=== PATIENT | male | born 1945 | race Hispanic/Latino ===

== ENCOUNTER 2019-08-23 17:25 | Inpatient (IN) | payer MEDICARE ==
[~2019-08-23] VITALS: Ht 170.2 cm; Wt 76.2 kg
[2019-08-23] MEDS ORDERED: MORPHINE SULFATE 2 MG/ML SYR 1ML IV PRN (17:45)
[2019-08-23] MEDS ORDERED: DEXTROSE 50% SYRINGE 50 ML IV PRN (17:45)
[2019-08-23] MEDS ORDERED: MORPHINE SULFATE INJ 4 MG/ML INJ 1ML IV PRN (17:45)
[2019-08-23] MEDS ORDERED: ONDANSETRON HCL INJ 2MG/ML 2ML 2 MG/ML VIAL IV PRN (17:45)
[2019-08-23 17:55] LABS: BASOPHILS # (AUTO) 0.1 (0.0-0.1); BASOPHILS % 0.6 % (0.0-1.0); EOSINOPHILS # (AUTO) 0.1 (0.0-0.4); EOSINOPHILS % 0.9 % (0.0-6.0); HEMATOCRIT 38.3 % (38.2-49.6); HEMOGLOBIN 12.2 g/dL (14.0-18.0); LYMPHOCYTES # (AUTO) 0.8 (1.0-3.2); LYMPHOCYTES % 8.8 % (18.0-39.1); MEAN CORPUSCULAR HEMOGLOBIN 27.7 pg (28-32); MEAN CORPUSCULAR HGB CONC 31.9 g/dL (31-35); MEAN CORPUSCULAR VOLUME 86.8 fL (81-99); MONOCYTES # (AUTO) 0.8 (0.2-0.8); NEUTROPHILS # (AUTO) 7.4 (2.1-6.9); NEUTROPHILS % 79.5 % (38.7-80.0); PLATELET COUNT 209 x10e3/uL (140-360); RED BLOOD COUNT 4.41 x10e6/uL (4.3-5.7); RED CELL DISTRIBUTION WIDTH 15.2 % (11.7-14.4)
[2019-08-23 18:09] LABS: ANION GAP 15.3 mmol/L (8-16); CALCIUM 9.2 mg/dL (8.4-10.2); CREATININE, SERUM 1.21 mg/dL (0.72-1.25); POTASSIUM 4.3 mmol/L (3.5-5.1)
[2019-08-23] MEDS: PIPER-TAZ 3.375 GM 50 ML IV SCH ×2 (18:21→23:11)
--- NOTE | 2019-08-23 18:32 | Diagnostic Imaging Report ---
Exam: Left foot series, 3 views. Clinical History: Gangrene, black toe Comparison: None. Findings: 3 views of the left foot. There is decreased bone mineralization. Negative for acute, displaced fracture or dislocation. Mild degenerative changes in the first toe metatarsophalangeal joint. Multiple air foci project in the soft tissues surrounding the third toe proximal phalanx. Lucencies and cortical irregularity noted in the superior/dorsal aspect of the fifth toe proximal phalanx, only seen in the lateral view. Extensive vascular calcifications. Moderate soft tissue swelling particularly in the dorsal aspect of the foot. Impression: 1. Findings consistent with gangrene involving the soft tissues surrounding the third toe proximal phalanx. 2. Findings in the superior/dorsal aspect of the fifth toe proximal phalanx are only seen in the lateral view, however, are suspicious for osteomyelitis. Signed by: Dr. Toby Bai M.D. on 08/23/2019 6:29 PM
[2019-08-23] MEDS ORDERED: DEXTROSE 50% SYRINGE 50 ML IV ONE (19:15)
[2019-08-23 20:45] VITALS: BP 182/82
--- NOTE | 2019-08-23 20:45 | NUR ---
PATIENT IS A NEW ADMIT THAT ARRIVED VIA STRETCHER. PATIENT IS AWAKE AND TALKING. PATIENT HAS BEEN ASSISTED INTO THE BED, BED IS IN THE LOWEST POSITION AND CALL KAHN IS WITHIN REACH.
[2019-08-23] MEDS: INSULIN REGULAR, HUMAN 100 UNIT/1 ML 3ML VIAL SQ SCH (21:00)
[2019-08-23] MEDS ORDERED: SODIUM CHLORIDE 0.9% 250ML 250 ML ONE (23:00)
[2019-08-23] MEDS ORDERED: HYDROCHLOROTHIA25 MG PO (23:44)
[2019-08-23] MEDS ORDERED: FLOMAX0.4 MG PO (23:44)
[2019-08-23] MEDS ORDERED: CRESTOR10 MG PO ×2 (23:44→23:45)
[2019-08-23] MEDS ORDERED: LEVOTHYROXINE50 MCG PO (23:44)
[2019-08-23] MEDS ORDERED: DILTIAZEM ER300 MG PO (23:44)
[2019-08-23] MEDS ORDERED: GLIMEPIRIDE4 MG PO (23:44)
[2019-08-23] MEDS ORDERED: JANUVIA100 MG PO (23:44)
[2019-08-23] MEDS ORDERED: METFORMIN HCL500 M2 PO (23:44)
[2019-08-23] MEDS ORDERED: LOSARTAN POTAS100 MG PO (23:44)
[2019-08-24] VITALS (8 sets, daily range): BP systolic 143–174; BP diastolic 65–77
--- NOTE | 2019-08-24 05:14 | NUR ---
H&P cc: toe color changes HPI: 74yoM, PCP , developed blackening of toe on left foot; Ongoing for 1 month. PCP sent pt to hospital. No abx at home. PMH: DM2, HTN, HLD, Hypothyroidism, BPH PSHx: none Allergies; see emr FH/SH; ; no cigs Meds; see MAR ROS: no f/c/s/N/V/D/[facility] [place] OCA/CP/sob/dizziness/back pain/confusion/agitation v/s; revd PE tired appearing anicteric ns1s2 mod bs soft nt nd Leg edema 2+ B/L 3rd toe on left foot black and malodorous; 4th toe on left foot edematous skin dry flat affect a&ox3; [facility] labs/meds; revd A/P: 74yoM Gangrene of 3rd phalanx left foot DM2 HTN Hypoglycemia DM2 SIVA BPH HLD PLAN IV abx; podiatry; check MRI; sed rate; hab1c/lipids lovenox/pepcid dispo: Tyler Holloway MD, PhD.
[2019-08-24] MEDS: PIPER-TAZ 3.375 GM 50 ML IV SCH ×4 (05:34→23:52)
[2019-08-24 05:48] LABS: BASOPHILS # (AUTO) 0.1 (0.0-0.1); BASOPHILS % 0.7 % (0.0-1.0); EOSINOPHILS # (AUTO) 0.1 (0.0-0.4); EOSINOPHILS % 1.4 % (0.0-6.0); HEMOGLOBIN 11.5 g/dL (14.0-18.0); LYMPHOCYTES # (AUTO) 0.5 (1.0-3.2); LYMPHOCYTES % 6.5 % (18.0-39.1); MEAN CORPUSCULAR HEMOGLOBIN 27.4 pg (28-32); MEAN CORPUSCULAR HGB CONC 31.1 g/dL (31-35); MEAN CORPUSCULAR VOLUME 88.1 fL (81-99); MONOCYTES # (AUTO) 0.6 (0.2-0.8); MONOCYTES % 7.4 % (4.4-11.3); NEUTROPHILS # (AUTO) 6.8 (2.1-6.9); NEUTROPHILS % 83.5 % (38.7-80.0); PLATELET COUNT 188 x10e3/uL (140-360); RED CELL DISTRIBUTION WIDTH 15.6 % (11.7-14.4)
[2019-08-24 06:05] LABS: ANION GAP 14.9 mmol/L (8-16); BLOOD UREA NITROGEN 19 mg/dL (7-26); BUN/CREATININE RATIO 17 (6-25); CALCIUM 8.6 mg/dL (8.4-10.2); CARBON DIOXIDE 26 mmol/L (22-29); CHLORIDE 103 mmol/L (98-107); CREATININE, SERUM 1.12 mg/dL (0.72-1.25); EST GLOMERULAR FILTRATION RATE > 60 ML/MIN (60-); GLUCOSE 69 mg/dL (74-118); POTASSIUM 3.9 mmol/L (3.5-5.1); SODIUM 140 mmol/L (136-145)
--- NOTE | 2019-08-24 06:08 | NUR ---
MD office notified of aggressive debridement consult. Awaiting call back from .
--- NOTE | 2019-08-24 06:15 | NUR ---
patient's blood sugar has been re-assessed and found to be 76. patient is laying in bed talking. No signs of distress noted.
--- NOTE | 2019-08-24 06:44 | NUR ---
at 6am patients blood sugar was 69. patient was awake laying in bed and talking. No signs of distress noted. patient was given 1 ham sandwich and and 1 cup of apple juice. will re-assess patient's blood sugar in 15minutes.
[2019-08-24 07:08] LABS: CHOL/HDL RATIO 3.8 (3.9-4.7)
--- NOTE | 2019-08-24 07:21 | NUR ---
report given to day nurse. patient is resting comfortably in bed. bed is in lowest position and call fraser is within reach.
[2019-08-24] MEDS: INSULIN REGULAR, HUMAN 100 UNIT/1 ML 3ML VIAL SQ SCH ×4 (07:30→21:10)
[2019-08-24] MEDS: FAMOTIDINE 20 MG TAB PO SCH ×2 (08:33→17:08)
[2019-08-24] MEDS: TAMSULOSIN HCL 0.4 MG CAP PO SCH (08:33)
[2019-08-24] MEDS: DILTIAZEM HCL ER 120 MG CAP PO SCH (08:34)
[2019-08-24] MEDS: DILTIAZEM HCL 180 MG CAP ER PO SCH (08:34)
[2019-08-24] MEDS: LEVOTHYROXINE SODIUM 100 MCG TAB PO SCH (08:43)
--- NOTE | 2019-08-24 10:08 | Diagnostic Imaging Report ---
MRI of the left forefoot without contrast. History: Foot pain. Gangrene left third digit. Diabetes. Decreased range of motion. Technique: Multiplanar multisequence MRI of the foot without contrast Comparison: Radiographs 08/23/2019 Findings: Skin ulceration with skin thickening and abnormal soft tissue edema involving the distal third toe. There is underlying cortical destruction and bone marrow edema involving the distal phalanx of the third toe consistent with osteomyelitis. Scattered degenerative change about the remaining visualized osseous structures. No definite MRI evidence to suggest osteomyelitis in the region of the fifth toe. Mild diffuse muscle atrophy. Superficial soft tissue edema most pronounced dorsally could be due to cellulitis. No ligamentous or tendon tear. The visualized neurovascular bundles are intact. Impression: Skin ulceration with skin thickening and abnormal soft tissue edema involving the distal third toe. There is underlying cortical destruction and bone marrow edema involving the distal phalanx of the third toe consistent with osteomyelitis. Signed by: Dr. Jose Manuel Ro M.D. on 08/24/2019 10:05 AM
--- NOTE | 2019-08-24 11:03 | NUR ---
WOUND CARE CONSULT 74 YO MALE DIABETIC PATIENT WITH HX CELLULITIS AND GANGRENE LEFT 3RD DIGIT MICHAEL 20 ON CONSERVATIVE PUP AND VISCO MATTRESS LABS: WBC-8.1,HGB-11.5,GLUCOSE- 69,GJDJ8D-15.4 X-RAY - SHOWS GANGRENE SOFT TISSUE 3RD TOE PROXIMAL PHALANX ALSO OSTEOMYELITIS DORSAL ASPECT OF 5TH TOE SKIN ASSESSMENT COMPLETE PATIENT PRESENTS WITH NECROTIC DARK BLACKENED 3RD TOE LEFT FOOT WITH EDEMA AND REDNESS RAMY 5TH TOE SWOLLEN NO OPEN AREAS REPORTED TO HAVE OSTEOMYELITIS PRESENT EVIDENCE BY X-RAY MRI RESULTS PENDING DR MAR CONSULTED SCHEDULED TO SEE PATIENT TODAY TO FORMULATE TREATMENT PLAN NURSING TO RECONSULT WOUND CARE IF NEEDED RECOMMENDATIONS : NURSING TO CONTINUE TO MONITOR AND MAINTAIN CONSERVATIVE PUP STATUS AND VISCO SURFACE NURSING TO CONTINUE TO ASSIST PATIENT OUT OF BED FOR MEALS AND MUCH TOLERATED NURSING TO APPLY BETADINE MADDY DAILY TO NECROTIC DIGIT AND COVERED WITH MADDY WRAPPED WITH KERLIX Addendum: 08/24/19 at 1117 by Kervin Jc RN Amended: Links added.
[2019-08-24] MEDS: VANCOMYCIN 1GM/NS 250 ML 250 ML IV SCH (14:54)
[2019-08-24] MEDS: ENOXAPARIN SOD INJ 40 MG/0.4 ML SYR SC SCH (17:08)
--- NOTE | 2019-08-24 18:59 | NUR ---
PATIENT IS IN STABLE CONDITION WITH NO S/S OF RESPIRATORY DISTRESS. NO PAIN VOICED. DRESSING TO LEFT FOOT IS DRY AND INTACT. BED ALARM APPLIED. PRESENT IN ROOM. CALL LIGHT IS WITHIN REACH OF PATIENT- PATIENT INSTRUCTED TO CALL FOR ASSISTANCE NEEDED. REPORT GIVEN TO ONCOMING NURSE.
--- NOTE | 2019-08-24 20:10 | NUR ---
Assessment done.no resp.distress.iv to right for arm is patent.Dr.J Paulino was doing rounds.received new orders. is with patient.bed locked and in lowest position.phone and call light within reach.instructed to call for assistance as needed.
[2019-08-24] MEDS: SIMVASTATIN 40 MG TAB PO SCH (21:10)
--- NOTE | 2019-08-24 21:24 | Consultation ---
DATE OF CONSULTATION: 08/24/2019 REASON FOR CONSULTATION: Gangrene of the foot, 3rd toe. HISTORY OF PRESENT ILLNESS: This patient who is a very pleasant 74-year-old male, who has history of hypertension, diabetes mellitus with neuropathy, atherosclerotic disease, comes in with left foot infection on the 3rd toe for the last week or so, getting progressively worse. The patient is telling me that there was no specific trauma, but this started more than 10 days ago. The toe became necrotic and the foot is red, so he came here. So the patient came to the hospital. The patient who does have history of hypertension, diabetes, no specific trauma. The patient is being admitted. He is complaining of pain. REVIEW OF SYSTEMS: HEENT: Negative. PULMONARY: Negative. CARDIAC: Negative. : Negative. Otherwise unremarkable. LABORATORY DATA: White count 9.3, hemoglobin 12. Sodium 140, potassium 3.9, creatinine 1.12. His laboratory data reviewed. MEDICATIONS: Currently on: 1. Zosyn. 2. Levothyroxine. 3. Flomax. LABORATORY DATA: Reviewed. Sodium 140, potassium 3.9, creatinine 1.12. White count 8.1. He had an MRI of the foot, which showed that he has skin ulcer underlying destruction of the bone marrow edema on distal phalanx of the toe. PHYSICAL EXAMINATION: GENERAL: He is currently alert, oriented, does not seem to be in acute distress. VITAL SIGNS: Stable, currently afebrile. HEENT: Not icteric. NECK: Supple. CHEST: Clear bilateral. HEART: S1, S2. No S3, S4, or murmur. ABDOMEN: Soft. Bowel sounds present. No tenderness. EXTREMITIES: The 3rd toe is gangrenous. There is erythema. There is edema noted of the whole foot. The pulse was very weak. IMPRESSION: 1. Osteomyelitis of the left foot. 2. Gangrene of the left 3rd toe. 3. Peripheral vascular disease. 4. Diabetes mellitus with neuropathy. 5. History of hypertension. RECOMMENDATION: Agree with Zosyn. Add vancomycin of Podiatry is consulted. Vascular workup is warranted. Further recommendations to follow. Obtain sedimentation rate C-reactive protein. MD VALERIE Wilson/SHAE /[id number]
--- NOTE | 2019-08-24 23:30 | NUR ---
Wet to dry betadine dressing done.pt tolerated well.stable condition.
[2019-08-25] VITALS (9 sets, daily range): BP systolic 119–156; BP diastolic 57–70
--- NOTE | 2019-08-25 01:20 | Consultation ---
DATE OF CONSULTATION: 08/24/2019 REASON FOR CONSULTATION: Gangrenous toe to the 3rd toe left foot for more than a month with the patient being an insulin-dependent diabetic. HISTORY OF PRESENT ILLNESS: This is a 74-year-old male was seen at bedside accompanied by spouse, who relates that they have had the infection for a month or so, but is denying history of fever, chills, nausea, or vomiting. Was sent to the ER by Dr. Holger Roberson. The patient was admitted yesterday and has been on IV antibiotics since. He is denying any history of fever, chills, nausea, or vomiting. Currently on IV vancomycin and Zosyn. PAST MEDICAL HISTORY: Remarkable for insulin-dependent diabetes, hypertension and hypercholesterolemia. PAST SURGICAL HISTORY: The patient denies . ALLERGIES: THE PATIENT DENIES. SOCIAL HISTORY: Denies any smoking, drinking, or recreational drug use, has one kid. Lives with his . CURRENT MEDICATIONS: As discussed above. FAMILY HISTORY: Remarkable for diabetes. REVIEW OF SYSTEMS: CARDIAC: Denies any palpitations or arrhythmias. RESPIRATORY: Denies any shortness of breath or productive cough. GASTROINTESTINAL: Denies any diarrhea or constipation. GENITOURINARY: Denies hematuria or problems voiding. PHYSICAL EXAMINATION: VITAL SIGNS: Afebrile. Pulse rate 73, respirations 24, blood pressure 143/68, and O2 saturation 93%. LABORATORY DATA: Labs noted; has a white blood cell count of 8.1, hemoglobin 11.5, hematocrit 37.0 with a platelet count of 188. Podiatric physical examination reveals the following: VASCULATURE: Pedal pulses of both the DP and PT are diminished. Very poor hygiene to both lower extremities. CFT to all toes less than 5 seconds. NEUROLOGICAL: Reveals a loss of protective sensation when utilizing [place]-[employer] 5.07 monofilament wire. MUSCULOSKELETAL: Reveals muscle mass to be symmetrical. Muscle strength to be 4/5 to all muscle groups. DERMATOLOGICAL: Reveals cellulitis with edema, left foot. Positive foul smell with a gangrenous 3rd toe, left foot. X-rays were negative for any gas in the tissue. ASSESSMENT: Gangrene with cellulitis, 3rd toe, left foot. PLAN: We will continue IV antibiotics. We will start diluted wet-to-dry Betadine twice a day. The patient will be taken for surgical intervention on Rocael for an I and D, partial amputation of 3rd toe left foot and more proximal amputation depending on intraoperative findings. Dr. Tomas will follow up this weekend. FRANCIA Carranza/MODL /[id number]
[2019-08-25] MEDS: VANCOMYCIN 1GM/NS 250 ML 250 ML IV SCH ×2 (03:16→15:15)
[2019-08-25] MEDS: PIPER-TAZ 3.375 GM 50 ML IV SCH ×4 (05:53→23:52)
[2019-08-25] MEDS: LEVOTHYROXINE SODIUM 100 MCG TAB PO SCH (05:53)
--- NOTE | 2019-08-25 06:51 | NUR ---
IM- progress note O/N no events ROS: no f/c/s/N/V/D/[place] OCA/CP/sob/dizziness/back pain/confusion/agitation v/s; revd PE tired appearing anicteric ns1s2 mod bs soft nt nd Leg edema 2+ B/L 3rd toe on left foot black and malodorous; 4th toe on left foot edematous skin dry flat affect a&ox3; [facility] labs/meds; revd A/P: 74yoM Gangrene of 3rd phalanx left foot DM2 HTN Hypoglycemia DM2 SIVA BPH HLD PLAN IV abx; podiatry; check MRI; sed rate; hab1c/lipids lovenox/pepcid dispo: 08/25 sed rate elevated at 53; MRI shows 3rd phalanx of left foot Osteomyelitis. cont IV abx; sx pending; Tyler Holloway MD, PhD.
--- NOTE | 2019-08-25 07:00 | NUR ---
Bed side shift report given to the on coming Rn.stable condition.
[2019-08-25] MEDS: INSULIN REGULAR, HUMAN 100 UNIT/1 ML 3ML VIAL SQ SCH ×4 (07:30→20:33)
[2019-08-25] MEDS: FAMOTIDINE 20 MG TAB PO SCH ×2 (09:48→15:18)
[2019-08-25] MEDS: DILTIAZEM HCL 180 MG CAP ER PO SCH (09:48)
[2019-08-25] MEDS: DILTIAZEM HCL ER 120 MG CAP PO SCH (09:49)
[2019-08-25] MEDS: TAMSULOSIN HCL 0.4 MG CAP PO SCH (09:49)
--- NOTE | 2019-08-25 10:51 | NUR ---
Received order for PWB LLE. Addendum: 08/25/19 at 1052 by Vaibhav Gomes PT Amended: Links added.
--- NOTE | 2019-08-25 14:14 | NUR ---
wound dressing change completed per MD orders by RN.
[2019-08-25] MEDS: ENOXAPARIN SOD INJ 40 MG/0.4 ML SYR SC SCH (18:15)
--- NOTE | 2019-08-25 18:35 | Progress Note ---
DATE: 08/25/2019 SUBJECTIVE: Mr. Clark is doing well. No new complaints. REVIEW OF SYSTEMS: HEENT: Negative. PULMONARY: Negative. CARDIAC: Negative. : Negative. EXTREMITIES: The foot is about the same. PHYSICAL EXAMINATION: GENERAL: He is currently alert and oriented. Does not seem to be in acute distress. VITAL SIGNS: Stable, currently afebrile. HEENT: He is not icteric. NECK: Supple. CHEST: Clear. HEART: S1 and S2. No S3, S4, or murmurs. ABDOMEN: Soft. Bowel sounds present. No tenderness. EXTREMITIES: No edema. The foot is about the same. The redness had subsided. SKIN: No rash. IMPRESSION: 1. Osteomyelitis of the left foot, cellulitis of the left foot, gangrene of the left 3rd toe, peripheral vascular disease. 2. Diabetes mellitus, neuropathy, history of hypertension. Continue with the current choice of IV antibiotic. The plan for amputation on Tuesday. He would need vascular workup. Continue vancomycin and Zosyn. Obtain vancomycin trough with the 3rd dose. Further recommendations to follow. MD VALERIE Wilson/MODL /[id number]
--- NOTE | 2019-08-25 19:15 | NUR ---
patient received awake, alert, lying quietly in bed. no c/o pain noted. dressing to left foot c,d,i. pm assessment complete. noted at the bedside. patient/ instructed to call for assistance when needed.
[2019-08-25] MEDS: SIMVASTATIN 40 MG TAB PO SCH (20:32)
--- NOTE | 2019-08-26 00:45 | NUR ---
betadine wet to dry dressing changed at this time. left foot elevated on a pillow for comfort. no c/o pain noted at this time.
--- NOTE | 2019-08-26 02:30 | NUR ---
vancomycin trough level drawn at this time and sent to lab.
--- NOTE | 2019-08-26 03:00 | NUR ---
iv to right forearm d/c'd due to leaking at site. clean dressing applied to site. new iv #20 gauge placed to left hand x 1 stick.
[2019-08-26] MEDS: VANCOMYCIN 1GM/NS 250 ML 250 ML IV SCH ×2 (03:40→15:01)
--- NOTE | 2019-08-26 03:40 | NUR ---
vancomycin trough level 16.2 vancomycin 1g ivpb given at this time.
[2019-08-26 04:30] VITALS: BP 135/63
[2019-08-26] MEDS: LEVOTHYROXINE SODIUM 100 MCG TAB PO SCH (06:00)
--- NOTE | 2019-08-26 06:30 | NUR ---
left foot dressing soiled with urine while in the bathroom. bath given and betadine wet to dry dressing reapplied at this time. no c/o pain noted throughout the night.
[2019-08-26] MEDS: PIPER-TAZ 3.375 GM 50 ML IV SCH ×3 (07:00→18:00)
[2019-08-26 07:10] VITALS: BP 139/74
--- NOTE | 2019-08-26 07:10 | NUR ---
PATIENT IN BED RESTING WITH EYES CLOSED, NO DISTRESS NOTED. DRESSING INTACT TO LEFT FOOT WITH MODERATE AMOUNT OF BETADINE NOTD. BED IN LOWER POSITION, CALL LIGHT AT REACH.
[2019-08-26] MEDS: INSULIN REGULAR, HUMAN 100 UNIT/1 ML 3ML VIAL SQ SCH ×4 (07:30→21:00)
[2019-08-26] MEDS: FAMOTIDINE 20 MG TAB PO SCH ×2 (08:10→16:58)
[2019-08-26 08:22] VITALS: BP 139/74
[2019-08-26] MEDS: TAMSULOSIN HCL 0.4 MG CAP PO SCH (09:20)
[2019-08-26] MEDS: DILTIAZEM HCL 180 MG CAP ER PO SCH (09:21)
[2019-08-26] MEDS: DILTIAZEM HCL ER 120 MG CAP PO SCH (09:21)
--- NOTE | 2019-08-26 10:14 | NUR ---
IM- progress note O/N no events ROS: no f/c/s/N/V/D/[facility] OCA/CP/sob/dizziness/back pain/confusion/agitation v/s; revd PE tired appearing anicteric ns1s2 mod bs soft nt nd Leg edema 2+ B/L 3rd toe on left foot black and malodorous; 4th toe on left foot edematous skin dry flat affect a&ox3; [facility] labs/meds; revd A/P: 74yoM Gangrene of 3rd phalanx left foot DM2 HTN Hypoglycemia DM2 SIVA BPH HLD PLAN IV abx; podiatry; check MRI; sed rate; hab1c/lipids lovenox/pepcid dispo: 08/25 sed rate elevated at 53; MRI shows 3rd phalanx of left foot Osteomyelitis. cont IV abx; sx pending; cont care Tyler Holloway MD, PhD.
--- NOTE | 2019-08-26 11:08 | NUR ---
PATIENT C/O COLD, WARM BLANKET PROVIDED. IN BED WITH CALL LIGHT AT REACH.
[2019-08-26 12:07] VITALS: BP 128/70
--- NOTE | 2019-08-26 14:14 | NUR ---
progress note [id number]
--- NOTE | 2019-08-26 15:20 | NUR ---
PATIENT ASSISTED TO THE BED SIDE COMMODE AND BACK TO BED. CALL LIGHT AT REACH.
--- NOTE | 2019-08-26 15:41 | Diagnostic Imaging Report ---
EXAMINATION: CHEST SINGLE (PORTABLE) INDICATION: Pre-procedure. COMPARISON: Pre-operative. FINDINGS: TUBES and LINES: None. LUNGS: Lungs are moderately inflated. There are patchy opacities in the bilateral lower lung zones. Mild perihilar and interstitial opacities. PLEURA: Possible small bilateral pleural effusions. No pneumothorax. HEART AND MEDIASTINUM: The cardiomediastinal silhouette is moderately enlarged. Atherosclerotic calcifications of the aortic arch. BONES AND SOFT TISSUES: No acute osseous abnormality. UPPER ABDOMEN: No free air under the diaphragm. IMPRESSION: Moderate cardiomegaly with pulmonary edema. Opacities in the lower lungs may represent atelectasis, alveolar edema, or infection in the appropriate clinical setting. Suggest follow-up chest radiograph. Signed by: Dr. Angeli Solo MD on 08/26/2019 3:38 PM
[2019-08-26 15:55] LABS: BASOPHILS # (AUTO) 0.1 (0.0-0.1); BASOPHILS % 0.7 % (0.0-1.0); EOSINOPHILS # (AUTO) 0.1 (0.0-0.4); EOSINOPHILS % 0.9 % (0.0-6.0); HEMATOCRIT 34.7 % (38.2-49.6); LYMPHOCYTES # (AUTO) 0.4 (1.0-3.2); LYMPHOCYTES % 4.6 % (18.0-39.1); MEAN CORPUSCULAR HEMOGLOBIN 27.4 pg (28-32); MEAN CORPUSCULAR HGB CONC 31.7 g/dL (31-35); MEAN CORPUSCULAR VOLUME 86.5 fL (81-99); MONOCYTES # (AUTO) 0.8 (0.2-0.8); NEUTROPHILS # (AUTO) 8.1 (2.1-6.9); NEUTROPHILS % 85.1 % (38.7-80.0); PLATELET COUNT 188 x10e3/uL (140-360); RED BLOOD COUNT 4.01 x10e6/uL (4.3-5.7); RED CELL DISTRIBUTION WIDTH 15.7 % (11.7-14.4)
[2019-08-26] MEDS: ENOXAPARIN SOD INJ 40 MG/0.4 ML SYR SC SCH (17:09)
[2019-08-26 17:25] VITALS: BP 187/79
[2019-08-26 18:08] LABS: INR 1.42; PROTHROMBIN TIME 17.9 seconds (11.9-14.5)
--- NOTE | 2019-08-26 18:12 | Consultation ---
DATE OF CONSULTATION: 08/26/2019 Cardiology Consultation REASON FOR CONSULTATION: Gangrene of the left foot. HISTORY OF PRESENT ILLNESS: Mr. Clark was admitted for worsening gangrene of the left foot. He is diabetic with hypertension. Arterial Doppler done today reveals a moderate infrapopliteal peripheral arterial disease. LABORATORY DATA: Hemoglobin is 11.5. Creatinine 1.1. ASSESSMENT: Moderate peripheral arterial disease with diabetic foot ulcer of the left leg. RECOMMENDATIONS: The ulceration of the left leg appears to be from small vessel disease as well as diabetes. No vascular intervention is indicated at this point. Continue local wound care and debridement as indicated. MRI of the foot was performed, which shows osteomyelitis. IV antibiotics are indicated. Infectious Disease is following. We will follow on an as-needed basis. I thank, Dr. Scott, for this consultation. MD JANUARY Ferguson/SHAE /[id number]
[2019-08-26 20:00] VITALS: BP 147/66
--- NOTE | 2019-08-26 20:00 | NUR ---
INITIAL ASSESSMENT COMPLETE, DRESSING TO LEFT FOOT INTACT, IV INTACT, VS STABLE, NO DISTRES NOTED, TO HAVE PROCEDURE IN AM, NO OTHER NEEDS, FAMILY IN ROOM, CALL LIGHT IN REACH
[2019-08-26] MEDS: SIMVASTATIN 40 MG TAB PO SCH (20:42)
[2019-08-27] VITALS (7 sets, daily range): BP systolic 133–160; BP diastolic 60–71
[2019-08-27] MEDS: VANCOMYCIN 1GM/NS 250 ML 250 ML IV SCH ×2 (03:00→15:00)
[2019-08-27] MEDS: PIPER-TAZ 3.375 GM 50 ML IV SCH ×4 (05:40→17:16)
[2019-08-27] MEDS: LEVOTHYROXINE SODIUM 100 MCG TAB PO SCH (05:40)
--- NOTE | 2019-08-27 06:10 | NUR ---
pt in bed, npo since midnight, consent signed, preop check list started, cleaned up for the day, procedure today, call light in reach, family at bedside
[2019-08-27] MEDS ORDERED: LIDOCAINE HCL 1% 30ML-PF VIAL ONE (06:57)
[2019-08-27] MEDS ORDERED: BUPIVACAINE HCL 0.5% INJ 30 ML VIAL INJ ONE (06:57)
[2019-08-27] MEDS ORDERED: BACITRACIN 50,000 UNIT VIAL ONE ×2 (06:57→08:12)
[2019-08-27] MEDS ORDERED: LIDOCAINE HCL 1% LOCAL INJ 20 ML VIAL ONE (06:57)
[2019-08-27] MEDS ORDERED: BETAMETHASONE DISODIUM PHOS 6 MG/ML VIAL ONE (07:02)
[2019-08-27] MEDS: INSULIN REGULAR, HUMAN 100 UNIT/1 ML 3ML VIAL SQ SCH ×4 (07:30→20:27)
--- NOTE | 2019-08-27 07:30 | NUR ---
PT OFF UNIT IN SURGERY.
--- NOTE | 2019-08-27 07:36 | NUR ---
IM- progress note O/N no events ROS: no f/c/s/N/V/D/[facility] OCA/CP/sob/dizziness/back pain/confusion/agitation v/s; revd PE tired appearing anicteric ns1s2 mod bs soft nt nd Leg edema 2+ B/L 3rd toe on left foot black and malodorous; 4th toe on left foot edematous skin dry flat affect a&ox3; [facility] labs/meds; revd A/P: 74yoM Gangrene of 3rd phalanx left foot DM2 HTN Hypoglycemia DM2 SIVA BPH HLD PLAN IV abx; podiatry; check MRI; sed rate; hab1c/lipids lovenox/pepcid dispo: 08/25 sed rate elevated at 53; MRI shows 3rd phalanx of left foot Osteomyelitis. cont IV abx; sx pending; cont care 08/27 f/u vascular studies; Tyler Holloway MD, PhD.
[2019-08-27] MEDS: FAMOTIDINE 20 MG TAB PO SCH ×2 (08:00→16:30)
[2019-08-27] MEDS ORDERED: MUPIROCIN 2% OINT 22 GM TUBE ONE ×2 (08:04→08:05)
--- NOTE | 2019-08-27 09:21 | Diagnostic Imaging Report ---
EXAMINATION: FOOT LEFT AP LAT INDICATION: Postoperative COMPARISON: Left foot radiograph of 08/23/2019 FINDINGS: There are postoperative findings of third toe amputation. Osteopenia at the distal third metatarsal head. No unexpected fracture. Alignment appears near-anatomic. Bony proliferative changes of the calcaneus. Atherosclerotic arterial calcifications. IMPRESSION: Postoperative findings of third toe amputation as above. Signed by: Lito Bryan MD on 08/27/2019 9:17 AM
--- NOTE | 2019-08-27 09:30 | NUR ---
PT RETURNED TO ROOM,LT FOOT ELEVATED ON TWO PILLOWS,DRSG DRY AND INTACT,SMALL AMT DRainage,DENIES PAIN.
[2019-08-27] MEDS: TAMSULOSIN HCL 0.4 MG CAP PO SCH (11:00)
[2019-08-27] MEDS: DILTIAZEM HCL ER 120 MG CAP PO SCH (11:00)
[2019-08-27] MEDS: DILTIAZEM HCL 180 MG CAP ER PO SCH (11:00)
--- NOTE | 2019-08-27 12:39 | Progress Note ---
DATE: 08/27/2019 SUBJECTIVE: Mr. Clark is doing better. There are no new complaints. REVIEW OF SYSTEMS: HEENT: Negative. PULMONARY: Negative. CARDIAC: Negative. PHYSICAL EXAMINATION: GENERAL: He is currently alert and oriented. Does not seem to be in acute distress. VITAL SIGNS: Stable, currently afebrile. HEENT: He is not icteric. NECK: Supple. CHEST: Clear. HEART: S1 and S2. No S3, S4, or murmurs. ABDOMEN: Soft. EXTREMITIES: The foot seems to be about the same. The redness is better. He continued to have gangrene of his 3rd toe. IMPRESSION: Osteomyelitis of the left foot, gangrene of the 3rd toe, severe peripheral vascular disease, and diabetes mellitus. The plan is to continue with IV antibiotic as ordered. Vascular workup is in progress. He is currently on vancomycin and Zosyn. We will follow levels. Recheck CBC. Recheck chem panel. Discussed with the family. Discussed with the medical team. MD VALERIE Wilson/MODL /[id number]
--- NOTE | 2019-08-27 12:49 | Operative Report ---
DATE OF PROCEDURE: 08/27/2019 SURGEON: Cosmo Paulino DPM PREOPERATIVE DIAGNOSES: 1. Gangrene, left foot. 2. Abscess, left foot. POSTOPERATIVE DIAGNOSIS: Confirmed. OPERATIVE PROCEDURE: 1. I and D of the left foot. 2. Amputation of 3rd toe, left foot. 3. Partial resection, 3rd metatarsal, left foot. ANESTHESIA: General. HEMOSTASIS: Pneumatic thigh tourniquet at 350 mmHg. PROCEDURE IN DETAIL: The patient was taken into the operating room, placed on the operating table in supine position. Following induction of general anesthesia by the anesthesiologist, Webril wraps were placed around the patient's left thigh followed by application of left thigh tourniquet. The left lower extremity was then prepped and draped in the usual aseptic manner and the following procedures were then performed. Procedure #1: I and D of the left foot. Attention was directed to the dorsal aspect of the 3rd MPJ where a racquet shaped incision was performed. Abscess was encountered and I and D down to bone. Some necrotizing fasciitis was present. Procedure #2: Amputation of 3rd toe. The toe was then disarticulated at the metatarsophalangeal joint and sent for pathological analysis. Further I and D of necrotic tissue was done. At this point, the thigh tourniquet was then released to allow for proper flushing of the wound. Necrotic tissue was removed via sharp and blunt dissection secondary to necrosis. Procedure #3 was performed. Partial resection of 3rd metatarsal head was resected via the use of an oscillating saw. Further I and D was performed until good viable bleeding tissue was achieved. Areas were then copiously flushed with sterile antibiotic solution and suctioned. Partial closure of the incision was performed via the use of a 3-0 nylon to allow for some approximation of the good viable tissue. The patient remained in the hospital having a sterile dressing was applied after the foot was anesthetized utilizing 15 mL of 0.5% plain Marcaine plus 10 mL of 1% Xylocaine plain to achieve local anesthesia of above-mentioned surgical area. Sterile dressing was applied. The patient was then transferred from the OR to recovery with vital signs stable and neurovascular status intact. No intraoperative complications were encountered. Blood loss from the surgery was minimal, less than 15 mL. The patient will need to remain in the hospital for IV antibiotics and local wound care. Further surgery may need if not responsive. FRANCIA Carranza /[id number]
--- NOTE | 2019-08-27 17:46 | Progress Note ---
DATE: 08/27/2019 SUBJECTIVE: Mr. Clark is doing well. There is no new complaint. REVIEW OF SYSTEMS: HEENT: Negative. PULMONARY: Negative. CARDIAC: Negative. The patient underwent surgical debridement. I and D of the left foot amputation of 3rd toe with partial amputation of the 3rd metatarsal. He is lying in bed comfortably. PHYSICAL EXAMINATION: GENERAL: He is currently alert, oriented, does not seem to be in acute distress. VITAL SIGNS: Stable. Currently afebrile. HEENT: He is not icteric. NECK: Supple. CHEST: Clear. HEART: S1, S2. No murmurs. ABDOMEN: Soft. IMPRESSION: 1. Osteomyelitis. 2. Infection of the foot, status post amputation. 3. Severe peripheral vascular disease. Workup is in progress. 4. Continue the IV antibiotic. Unfortunately, I do not see any cultures. We will discuss with the attending. Further recommendations to follow. MD VALERIE Wilson/SHAE /[id number]
--- NOTE | 2019-08-27 17:46 | Progress Note ---
DATE: 08/26/2019 SUBJECTIVE: I am not so sure of the note was done or not. The patient was seen and examined. Chart reviewed. REVIEW OF SYSTEMS: Otherwise unremarkable. PHYSICAL EXAMINATION: GENERAL: He is currently alert, oriented, does not seem in acute distress. VITAL SIGNS: Stable. Currently afebrile. HEENT: He is not icteric. NECK: Supple. CHEST: Clear. HEART: S1, S2. No S3, S4, or murmur. ABDOMEN: Soft. IMPRESSION AND PLAN: 1. Osteomyelitis. 2. Severe peripheral vascular disease. 3. Diabetes mellitus with neuropathy. 4. He is going for amputation of the foot tomorrow. 5. Vascular workup is in progress. 6. Continue IV antibiotic, vancomycin and Zosyn. 7. We will recheck CBC. Recheck Chem panel. MD VALERIE Wilson/MODL /[id number]
--- NOTE | 2019-08-27 18:16 | NUR ---
PT UP ON SIDE OF BED ,DENIES PAIN,WAYNE D&I.
--- NOTE | 2019-08-27 19:34 | NUR ---
Received change of shift report from AM nurse. Walking rounds completed.
[2019-08-27] MEDS ORDERED: ONDANSETRON HCL INJ 2MG/ML 2ML 2 MG/ML VIAL ONE (20:12)
[2019-08-27] MEDS ORDERED: LIDOCAINE HCL 2% LOCAL INJ 5 ML SDV VIAL INJ ONE (20:12)
[2019-08-27] MEDS ORDERED: SEVOFLURANE INHAL SOLN 250 ML PEN BTL ONE (20:12)
[2019-08-27] MEDS ORDERED: PROPOFOL IV EMULSION 10 MG/ML 20 ML VIAL ONE (20:12)
[2019-08-27] MEDS: SIMVASTATIN 40 MG TAB PO SCH (20:26)
[2019-08-28] VITALS (7 sets, daily range): BP systolic 127–149; BP diastolic 61–67
[2019-08-28] MEDS: VANCOMYCIN 1GM/NS 250 ML 250 ML IV SCH ×2 (02:45→15:00)
[2019-08-28] MEDS: PIPER-TAZ 3.375 GM 50 ML IV SCH ×4 (06:00→17:38)
[2019-08-28] MEDS: LEVOTHYROXINE SODIUM 100 MCG TAB PO SCH (06:00)
[2019-08-28] MEDS: INSULIN REGULAR, HUMAN 100 UNIT/1 ML 3ML VIAL SQ SCH ×4 (07:30→21:00)
[2019-08-28] MEDS: DILTIAZEM HCL 180 MG CAP ER PO SCH (09:08)
[2019-08-28] MEDS: FAMOTIDINE 20 MG TAB PO SCH ×2 (09:08→17:38)
[2019-08-28] MEDS: TAMSULOSIN HCL 0.4 MG CAP PO SCH (09:09)
[2019-08-28] MEDS: DILTIAZEM HCL ER 120 MG CAP PO SCH (09:09)
--- NOTE | 2019-08-28 11:07 | Progress Note ---
DATE: 08/28/2019 SUBJECTIVE: The patient is seen at bedside, doing better. Decreased discomfort to the left lower extremity. Denies any history of fever, chills, nausea, or vomiting. OBJECTIVE: VITAL SIGNS: Afebrile. Vital signs stable. EXTREMITIES: Still some positive mild foul smell to the left foot, status post amputation, I and D and partial resection of the 3rd met, left foot. ASSESSMENT: Deep space infection, cellulitis, osteo with gangrene. PLAN: The patient will need IV antibiotics for at least several more weeks. We will continue to monitor in the hospital. The patient may need further surgery if not responsive. FRANCIA Carranza/SHAE /[id number]
--- NOTE | 2019-08-28 14:10 | NUR ---
Dressing change provided at this time per order. Pt tolerated well, small amounts of blood to site. Swelling and discoloration noted to LLE and foot. Pitting edema 2+
--- NOTE | 2019-08-28 15:21 | NUR ---
Dr. Lara office paged at this time pertaining to critical lab vanc trough of 22.0, awaiting call back.
--- NOTE | 2019-08-28 15:34 | Progress Note ---
DATE: 08/28/2019 Medicine Progress Note I am covering for Dr. Tyler Holloway. SUBJECTIVE: The patient came in with a left 3rd toe gangrene, now status post amputation with cellulitis, being managed with IV antibiotic therapy. No overnight events. Currently doing very well. PHYSICAL EXAMINATION: VITAL SIGNS: Temperature is 97.8, pulse 73, respiratory rate is 19, blood pressure 127/61, and pulse ox 94% on room air. GENERAL: Not in acute distress. Alert and oriented x3. Cooperative on examination. HEENT: Head; normocephalic, atraumatic. Eyes; pupils are equal, round, and reactive to light bilaterally. Extraocular movements intact bilaterally. Throat; no evidence of erythema or exudates in the posterior pharynx. Has poor dentition. NECK: Supple. Good range of motion. PULMONARY: Clear to auscultation bilaterally. No wheezing, no rales, no rhonchi, no crackles appreciated. CARDIOVASCULAR: Positive S1 and S2. No murmurs, rubs, or gallops appreciated. ABDOMEN: Soft, nondistended, and nontender to palpation. Bowel sounds present. MUSCULOSKELETAL: Strength is 5/5 throughout. No evidence of any muscle deficits on examination. No weakness appreciated. NEUROLOGIC: Cranial nerves II through XII grossly intact. No evidence of any neurological deficits on exam. SKIN: Intact. Warm to touch. Good cap refill. PSYCHIATRIC: Normal affect and mood. EXTREMITIES: No edema. Good range of motion throughout. LABORATORY FINDINGS: Show white count 9.5, hemoglobin 11, hematocrit is 34, and platelets of 188. Coagulation; PT 17 and INR 1.42. Chemistry reviewed, stable. Needs repeat labs. IMAGING STUDIES: Foot x-ray performed yesterday, 08/27/2019, shows postoperative changes of amputation 3rd toe on the left foot. Chest x-ray on 08/26/2019, shows some pulmonary edema. Arterial dopplers concerning for underlying moderate PAD in the lower extremity, but evaluated by Cardiology. Reports no intervention needed at this time. IMPRESSION: 1. Left foot cellulitis with osteomyelitis, status post 3rd toe amputation performed on 08/27/2019. 2. Left foot cellulitis. 3. Peripheral vascular disease-no further workup according to Cardiology's note. 4. Type 2 diabetes. 5. Hypertension. PLAN: At this time, continue with IV antibiotic therapy as per ID. He does have an amputation now, so it seems that the antibiotic therapy will be much less longer. I will need to talk to ID about this. As per Podiatry, he needed amputated 3rd toe. He does still shows some cellulitis in the left foot. As per Cardiology, they recommend no further vascular workup at this time. Continue with broad-spectrum IV antibiotics. Continue with antihypertensive medication. Insulin sliding scale. Get a.m. labs. We will put him on Lovenox for DVT prophylaxis and continue plan of care. MD ROX Alonzo/SHAE /[id number]
[2019-08-28] MEDS: ENOXAPARIN SOD INJ 40 MG/0.4 ML SYR SC SCH (17:38)
--- NOTE | 2019-08-28 20:08 | NUR ---
Received change of shift report from AM nurse. Walking rounds completed.
[2019-08-28] MEDS: SIMVASTATIN 40 MG TAB PO SCH (21:00)
[2019-08-29] VITALS (7 sets, daily range): BP systolic 144–168; BP diastolic 60–74
[2019-08-29] MEDS: VANCOMYCIN 1GM/NS 250 ML 250 ML IV SCH ×2 (03:00→14:43)
[2019-08-29] MEDS: LEVOTHYROXINE SODIUM 100 MCG TAB PO SCH (05:06)
[2019-08-29] MEDS: PIPER-TAZ 3.375 GM 50 ML IV SCH ×5 (05:06→20:48)
[2019-08-29 06:01] LABS: BASOPHILS # (AUTO) 0.1 (0.0-0.1); BASOPHILS % 0.9 % (0.0-1.0); EOSINOPHILS # (AUTO) 0.1 (0.0-0.4); EOSINOPHILS % 0.9 % (0.0-6.0); HEMATOCRIT 33.6 % (38.2-49.6); HEMOGLOBIN 10.5 g/dL (14.0-18.0); LYMPHOCYTES # (AUTO) 0.7 (1.0-3.2); LYMPHOCYTES % 8.3 % (18.0-39.1); MEAN CORPUSCULAR HEMOGLOBIN 27.4 pg (28-32); MEAN CORPUSCULAR HGB CONC 31.3 g/dL (31-35); MEAN CORPUSCULAR VOLUME 87.7 fL (81-99); MONOCYTES # (AUTO) 0.8 (0.2-0.8); MONOCYTES % 9.8 % (4.4-11.3); NEUTROPHILS # (AUTO) 6.4 (2.1-6.9); NEUTROPHILS % 79.4 % (38.7-80.0); PLATELET COUNT 203 x10e3/uL (140-360); RED BLOOD COUNT 3.83 x10e6/uL (4.3-5.7); RED CELL DISTRIBUTION WIDTH 15.9 % (11.7-14.4)
[2019-08-29 06:21] LABS: CALCIUM 8.1 mg/dL (8.4-10.2); CREATININE, SERUM 1.41 mg/dL (0.72-1.25)
--- NOTE | 2019-08-29 07:17 | NUR ---
PATIENT IN BED RESTING WITH EYES CLOSED, NO DISTRESS NOTED. DRESSING INTACT TO LEFT FOOT. BED IN LOWER POSITION, CALL LIGHT AT REACH.
[2019-08-29] MEDS: INSULIN REGULAR, HUMAN 100 UNIT/1 ML 3ML VIAL SQ SCH ×4 (07:30→20:47)
[2019-08-29] MEDS: FAMOTIDINE 20 MG TAB PO SCH ×2 (08:30→16:50)
[2019-08-29] MEDS: TAMSULOSIN HCL 0.4 MG CAP PO SCH (09:24)
[2019-08-29] MEDS: DILTIAZEM HCL ER 120 MG CAP PO SCH (09:24)
[2019-08-29] MEDS: DILTIAZEM HCL 180 MG CAP ER PO SCH (09:24)
--- NOTE | 2019-08-29 10:51 | NUR ---
DRESSING CHANGED TO LEFT FOOT ORDERED, PATIENT TOLERATED PROCEDURE WELL. IN BED WITH CALL LIGHT AT REACH.
--- NOTE | 2019-08-29 12:14 | NUR ---
CM CALLED CON[facility] [place] WITH [facility] [phone] LEFT VOICE MAIL ASKING FOR EXPEDITED DECISION FOR ACUTE REHAB POST [facility]UTE [facility] ASKED FOR CALL BACK REGARDING STATUS OF DECISION
--- NOTE | 2019-08-29 15:08 | NUR ---
PATIENT EXERCISED IN ROOM WITH PHYSICAL THERAPY. OUT OF BED TO CHAIR, CALL LIGHT AT REACH.
--- NOTE | 2019-08-29 15:53 | Progress Note ---
DATE: 08/29/2019 SUBJECTIVE: The patient at bedside accompanied by family members, doing better. Denies any history of fever, chills, nausea, or vomiting. OBJECTIVE: VITALS: Afebrile. Vital signs stable. EXTREMITIES: Incision was inspected. Negative foul smell noted. Incision looks good. There is decreased cellulitis and minimal drainage. LABORATORY DATA: Labs were noted. White blood cell count down to normal to 8.08. ASSESSMENT: Status post left foot surgery, multiple procedures. PLAN: Sterile dressing was applied with diluted wet-to-dry Betadine. We will need IV antibiotics for at least 2-4 more weeks. We will need dressing changes every other day. The patient relates he will be transferred to a rehab center, instructed to keep weightbearing to a minimal with surgical shoe. FRANCIA Carranza/SHAE /[id number]
--- NOTE | 2019-08-29 16:33 | Progress Note ---
DATE: 08/29/2019 Medicine Progress Note SUBJECTIVE: Covering for Dr. Tyler Holloway. The patient underwent left 3rd toe gangrene amputation, being treated with IV antibiotics for cellulitis as well. No further workup needed by Podiatry. Cardiology, no further workup. Pending inpatient rehab acceptance. PHYSICAL EXAMINATION: VITAL SIGNS: Temperature 97, pulse 74, respiratory rate is 20, blood pressure 115/69, and pulse ox 92% on room air. GENERAL: Not in acute distress. Alert and oriented x3. Cooperative on examination. HEENT: Head; normocephalic, atraumatic. Eyes; pupils are equal, round, and reactive to light bilaterally. Extraocular movements intact bilaterally. Throat; no evidence of erythema or exudates in the posterior pharynx. Has poor dentition. NECK: Supple. Good range of motion. PULMONARY: Clear to auscultation bilaterally. No wheezing, no rales, no rhonchi, no crackles appreciated. CARDIOVASCULAR: Positive S1 and S2. No murmurs, rubs, or gallops appreciated. ABDOMEN: Soft, nondistended, and nontender to palpation. Bowel sounds present. MUSCULOSKELETAL: Strength is 5/5 throughout. No evidence of any muscle deficits on examination. No weakness appreciated. NEUROLOGIC: Cranial nerves II through XII grossly intact. No evidence of any neurological deficits on exam. SKIN: Intact. Warm to touch. Good cap refill. PSYCHIATRIC: Normal affect and mood. EXTREMITIES: No edema. Good range of motion throughout. LABORATORY DATA: CBC reviewed, stable. Chemistry reviewed. Creatinine is 1.4. Vancomycin trough was 22. IMAGING STUDIES: Nothing new. IMPRESSION: 1. Left foot cellulitis with osteomyelitis, status post 3rd toe amputation performed on 08/27/2019. 2. Left foot cellulitis. 3. Peripheral vascular disease. No further workup needed by Cardiology according to the note. 4. Type 2 diabetes. 5. Hypertension. PLAN: At this time, continue with IV antibiotics per ID. I do not know how long he needs the IV antibiotic therapy, but he seems like now that he has amputation, will likely just p.o. antibiotics. Podiatry amputated the 3rd toe. No further workup by them. Still treating for underlying cellulitis. As per Cardiology, no further workup was needed. We are now work on inpatient rehab acceptance to [facility] rehab according to the prior attending. We will continue with Lovenox for DVT prophylaxis and monitor closely. MD ROX Alonzo/SHAE /[id number]
--- NOTE | 2019-08-29 17:07 | NUR ---
Nutrition Screen Note RD Recommendation for Physician: -Continue current diet per MD. Plan of Care: RD following, monitoring for tolerance and adequacy Nutrition reason for involvement: LOS Primary Diagnose(s): Gangrene L 3rd digit PMH: hypertension, diabetes, Ht: 67 in Wt: 168 lb BMI: 26.3 kg/m2 IBW: [address] Assessment: 08/29: 74 YOM admitted for gangrene with PMH listed above. Pt s/p AKA on the .-no further workup by podiatry is needed per MD note, possible d/c to rehab soon. The pt was seen consuming his breakfast, family at bedside. He stated his appetite has improved, no N/V/C/D/chewing or swallowing issues or any food allergies. Pt denied education and had no other questions or concerns. Pt has been consuming 75-100% of his meals per meals assessment. Chart reviewed. Labs and meds reviewed. Will continue to monitor. Current Diet: 1800 ADA diet Malnutrition Evaluation 08/29 The patient does not meet criteria for a specified degree of malnutrition at this time. Will re-evaluate at follow-up as appropriate. Diet Education Needs Assessment: Diet education indicated, pt denied education. Diet Adequacy: Meeting calorie needs, Meeting protein needs Nutrition Care Level: low Signed: Catrachita Figueroa, RD, LD
[2019-08-29] MEDS: ENOXAPARIN SOD INJ 40 MG/0.4 ML SYR SC SCH (17:23)
[2019-08-29] MEDS: SIMVASTATIN 40 MG TAB PO SCH (20:47)
--- NOTE | 2019-08-29 20:59 | Progress Note ---
DATE: 08/29/2019 SUBJECTIVE: Mr. Clark is doing well. There is no new complaint. The insurance is refusing to give him IV antibiotics apparently. He underwent left 3rd toe gangrene amputation, currently doing well. REVIEW OF SYSTEMS: HEENT: Negative. PULMONARY: Negative. CARDIAC: Negative. PHYSICAL EXAMINATION: GENERAL: He is currently alert, oriented, does not seem in acute distress. VITAL SIGNS: Stable. Currently afebrile. HEENT: He is not icteric. NECK: Supple. CHEST: Clear. HEART: S1, S2. No S3, S4, or murmur. ABDOMEN: Soft. Bowel sounds present. No tenderness. EXTREMITIES: No edema. SKIN: No rash. IMPRESSION: 1. Osteomyelitis, status post amputation. Unfortunately, there are no cultures sent. He is currently on vancomycin and Zosyn. 2. Chronic kidney disease. 3. Diabetes mellitus with neuropathy. We will probably discharge home with oral doxycycline and Cipro for six weeks tomorrow. Follow up as an outpatient. Discussed with Medical team. MD VALERIE Wilson/SHAE /[id number]
[2019-08-30] VITALS (10 sets, daily range): BP systolic 149–177; BP diastolic 65–73
[2019-08-30] MEDS: VANCOMYCIN 1GM/NS 250 ML 250 ML IV SCH ×2 (02:28→16:00)
[2019-08-30] MEDS: LEVOTHYROXINE SODIUM 100 MCG TAB PO SCH (06:01)
[2019-08-30] MEDS: PIPER-TAZ 3.375 GM 50 ML IV SCH ×3 (06:01→18:08)
--- NOTE | 2019-08-30 07:15 | NUR ---
PATIENT IN BED RESTING WITH NO S/S OF DISCOMFORT. CALL LIGHT AT REACH.
[2019-08-30] MEDS: INSULIN REGULAR, HUMAN 100 UNIT/1 ML 3ML VIAL SQ SCH ×4 (07:30→21:57)
[2019-08-30] MEDS: FAMOTIDINE 20 MG TAB PO SCH ×2 (07:45→16:30)
[2019-08-30] MEDS: TAMSULOSIN HCL 0.4 MG CAP PO SCH (09:19)
[2019-08-30] MEDS: DILTIAZEM HCL ER 120 MG CAP PO SCH (09:19)
[2019-08-30] MEDS: DILTIAZEM HCL 180 MG CAP ER PO SCH (09:19)
--- NOTE | 2019-08-30 11:06 | NUR ---
PATIENT OUT OF BED TO CHAIR TALKING TO FAMILY MEMBER VISITING, CALL LIGHT AT REACH.
--- NOTE | 2019-08-30 12:31 | NUR ---
RECEIVED CALL FROM HANNAH BELL STATING PT WAS DENIED BY INSURANCE AFTER MEDICAL REVIEW. P2P WAS OFFERED. CALL TO DR. MOLINA. STATES HE HAD ALREADY SPOKEN W THE MED DIRECTOR AND AGREED PT MORE APPROPRIATE FOR SNF. CM WILL ORDER SNF.
--- NOTE | 2019-08-30 13:37 | NUR ---
SPOKE WITH PT ABOUT SNF, AND PT STATES WOULD RATHER GO HOME WITH HOME HEALTH. SIGNED CHOICE FOR THE COMPANY WANTS OF [facility], SIGNED CHOICE AND FILED IN CHART, NOTIFIED CM.
--- NOTE | 2019-08-30 16:17 | NUR ---
WOUND CARE PROVIDED ORDERED. PATIENT IN BED RESTING WITH CALL LIGHT AT REACH.
--- NOTE | 2019-08-30 17:00 | NUR ---
SPOKE WITH DR MARTHA ZAYAS REGARDING ABNORMAL VANC TROUGH. NO NEW ORDER RECEIVED.
[2019-08-30] MEDS: ENOXAPARIN SOD INJ 40 MG/0.4 ML SYR SC SCH (17:10)
--- NOTE | 2019-08-30 19:00 | NUR ---
RECEIVED PATIENT IN BEDSIDE REPORT. PATIENT RESTING IN BED. NO PAIN REPORTED. NO S&S OF DISTRESS NOTED. BED LOCKED IN LOWEST POSITION, SIDE RAILS UPX2, CALL LIGHT IN REACH.
[2019-08-30] MEDS: SIMVASTATIN 40 MG TAB PO SCH (21:13)
[2019-08-31] VITALS: BP 165/75
[2019-08-31] MEDS: PIPER-TAZ 3.375 GM 50 ML IV SCH ×3 (00:12→13:06)
--- NOTE | 2019-08-31 00:40 | Progress Note ---
DATE: 08/30/2019 Medicine Progress Note SUBJECTIVE: The patient is doing well today with no complaints. He has been denied for inpatient rehab. The family refuses penitentiary facility placement. We will discharge on oral antibiotics. PHYSICAL EXAMINATION: VITAL SIGNS: Temperature is 98.6, pulse 70, respiratory rate is 18, blood pressure 155/69, pulse ox 98% on room air. GENERAL: Not in acute distress, alert and oriented x3. Cooperative on examination. HEENT: Head is normocephalic, atraumatic. Eyes; pupils are equal and reactive to light bilaterally. Extraocular movements are intact. NECK: Supple. Good range of motion. Throat, no evidence of any erythema or exudates in the posterior pharynx. Has poor dentition. PULMONARY: Clear to auscultation bilaterally. No wheezing, rales, or rhonchi. No crackles appreciated. CARDIOVASCULAR: Positive S1 and S2. No murmurs, rubs, or gallops appreciated. ABDOMEN: Soft, nondistended, nontender to palpation. Bowel sounds present. MUSCULOSKELETAL: Strength is 5/5 throughout. No evidence of muscle deficits on examination. PSYCHIATRIC: Normal affect and mood. EXTREMITIES: No edema. Good range of motion throughout. LABORATORY DATA: Show white count 8, hemoglobin 10, hematocrit of 33, platelets of 203. Coagulation; PT 17, INR 1.42. Chemistry reviewed. IMAGING STUDIES: There is nothing new. IMPRESSION: 1. Left foot cellulitis with osteomyelitis, status post 3rd toe amputation performed on 08/27/2019. 2. Left foot cellulitis. 3. Peripheral vascular disease. No further workup needed by Cardiology. 4. Type 2 diabetes. 5. Hypertension. PLAN: At this time, he has been denied inpatient rehab. Family refuses penitentiary facility placement. At this time, they agreed to home health with home PT and OT. I did discuss this with ID. He agreed with Cipro and doxy for 2 weeks. He does not need IV antibiotics. As per Podiatry, he will be local wound care and follow up as an outpatient in his office. No further workup needed by Cardiology. Plan to discharge tomorrow. MD ROX Alonzo/MODL /[id number]
[2019-08-31 04:00] VITALS: BP 149/66
[2019-08-31] MEDS: VANCOMYCIN 1GM/NS 250 ML 250 ML IV SCH ×2 (04:21→15:56)
[2019-08-31] MEDS: LEVOTHYROXINE SODIUM 100 MCG TAB PO SCH (06:32)
[2019-08-31 06:45] LABS: BASOPHILS # (AUTO) 0.1 (0.0-0.1); BASOPHILS % 0.8 % (0.0-1.0); EOSINOPHILS # (AUTO) 0.1 (0.0-0.4); EOSINOPHILS % 0.8 % (0.0-6.0); HEMOGLOBIN 10.7 g/dL (14.0-18.0); LYMPHOCYTES # (AUTO) 0.6 (1.0-3.2); LYMPHOCYTES % 7.1 % (18.0-39.1); MEAN CORPUSCULAR HEMOGLOBIN 27.2 pg (28-32); MEAN CORPUSCULAR HGB CONC 30.6 g/dL (31-35); MEAN CORPUSCULAR VOLUME 88.8 fL (81-99); MONOCYTES # (AUTO) 0.7 (0.2-0.8); MONOCYTES % 8.5 % (4.4-11.3); NEUTROPHILS # (AUTO) 7.1 (2.1-6.9); NEUTROPHILS % 82.2 % (38.7-80.0); PLATELET COUNT 242 x10e3/uL (140-360); RED BLOOD COUNT 3.94 x10e6/uL (4.3-5.7); RED CELL DISTRIBUTION WIDTH 15.9 % (11.7-14.4)
[2019-08-31 06:57] LABS: ANION GAP 13.9 mmol/L (8-16); CALCIUM 8.2 mg/dL (8.4-10.2); CREATININE, SERUM 1.3 mg/dL (0.72-1.25); POTASSIUM 3.9 mmol/L (3.5-5.1)
[2019-08-31] MEDS: INSULIN REGULAR, HUMAN 100 UNIT/1 ML 3ML VIAL SQ SCH ×3 (07:30→17:28)
[2019-08-31 08:00] VITALS: BP 174/78
[2019-08-31] MEDS: FAMOTIDINE 20 MG TAB PO SCH ×2 (08:43→17:27)
[2019-08-31] MEDS: TAMSULOSIN HCL 0.4 MG CAP PO SCH (08:44)
[2019-08-31] MEDS: DILTIAZEM HCL ER 120 MG CAP PO SCH (08:44)
[2019-08-31] MEDS: DILTIAZEM HCL 180 MG CAP ER PO SCH (08:44)
--- NOTE | 2019-08-31 11:06 | NUR ---
PT NOW IN AGREEMENT TO GO TO [facility], COMPLETED PACKET RTF AND PAS[facility] TO START REFERRAL
--- OUTSIDE RECORDS SUMMARY | 2019-08-31 11:31 | XMS REPORT ---
Author Author [facility] Address Unknown Phone Unavailable Care Team Providers Care Microbiology Manager Name Role Phone NEGRITO SEAMAN Unavailable Unavailable Problems This patient has no known problems. Allergies, Adverse Reactions, Alerts This patient has no known allergies or adverse reactions. Medications This patient has no known medications. Results Test Description Test Time Test Comments Text Results Atomic Results Result Comments FOOT LEFT AP LAT 2019-08-27 09:15:00 [place] [address] Patient Name: VIPUL RUIZ MR #: [id number] : 1945 Age/Sex: 74/M Req #: [id number] [facility] Physician: NEGRITO SEAMAN MD Ordered by: MARIA DOLORES KEMP DPEfraín Report #: [id number] Location: MED/SURG3 Room/Bed: [facility] Procedure: [id number] DX/FOOT LEFT AP LAT Exam Date: 08/27/19 Exam Time: 0852 REPORT STATUS: Signed EXAMINATION: FOOT LEFT AP LAT INDICATION: Postope rative COMPARISON: Left foot radiograph of 08/23/2019 FINDINGS: There are postoperative findings of third toe amputation. Osteopenia at the distal third metatarsal head. No unexpected fracture. Alignment appears near- anatomic. Bony proliferative changes of the calcaneus. Atherosclerotic arterial calcifications. IMPRESSION: Postoperative findings of third toe amputation as above. Signed by: Valarie Bryan MD on 08/27/2019 9:17 AM Dictated By: VALARIE BRYAN MD 6 Transcribed By: DOC on 08/27/19916 COPY TO: MARIA DOLORES KEMP DPM CHEST SINGLE (PORTABLE) 2019-08-26 15:35:00 [place] [address] Patient Name: VIPUL RUIZ MR #: [id number] : 1945 Age/Sex: 74/M Req #: [id number] Adm Physician: NEGRITO SEAMAN MD Ordered by: MARIA DOLORES KEMP DPM Report #: [id number] Location: MED/SURG3 Room/Bed: [facility] Procedure: [id number] DX/CHEST SINGLE (PORTABLE) Exam Date: 08/26/19 Exam Time: 1515 REPORT STATUS: Signed EXAMINATION: CHEST SINGLE (PORTABLE) INDICAT ION: Pre-procedure. COMPARISON: Pre-operative. FINDINGS: TUBES and LINES: None. LUNGS: Lungs are moderately inflated. There are patchy opacities in the bilateral lower lung zones. Mild perihilar and interstitial opacities. PLEURA: Possible small bilateral pleural effusions. No pneumothorax. HEART AND MEDIASTINUM: The cardiomediastinal silhouette is moderately enlarged. Atherosclerotic calcifications of the aortic arch. BONES AND SOFT TISSUES: No acute osseous abnormality. UPPER ABDOMEN: No free air under the diaphragm. IMPRESSION: Moderate cardiomegaly with pulmonary edema. Opacities in the lower lungs may represent atelectasis, alveolar edema, or infection in the appropriate clinical setting. Suggest follow-up chest radiograph. Signed by: Dr. Zahira Mckeon MD on 08/26/2019 3:38 PM Dictated By: ZAHIRA MCKEON MD 37 Transcribed By: DOC on 08/26/191537 COPY TO: MARIA DOLORES KEMP DPM MRI FOOT LEFT WO 2019-08-24 09:59:00 [place] [address] Patient Name: VIPUL RUIZ MR #: [id number] : 1945 Age/Sex: 74/M Req #: [id number] Adm Physician: NEGRITO SEAMAN MD Ordered by: NEGRITO SEAMAN MD Report #: [id number] Location: [facility]/SURG3 Room/Bed: [facility] Procedure: [id number] MRI/MRI FOOT LEFT WO Exam Date: Exam Time: REPORT STATUS: Signed MRI of the left forefoot without contrast. History: Foot pain. Gangrene left third digit. Diabetes. Decreased range of motion. Technique: Multiplanar multisequence MRI of the foot without contrast Comparison: Radiographs 08/23/2019 Findings: Skin ulceration with skin thickening and abnormal soft tissue edema involving the distal third toe. There is underlying cortical destruction and bone marrow edema involving the distal phalanx of the third toe consistent with osteomyelitis. Scattered degenerative change about the remaining visualized osseous structures. No definite MRI evidence to suggest osteomyelitis in the region of the fifth toe. Mild diffuse muscle atrophy. Superficial soft tissue edema most pronounced dorsally could be due to cellulitis. No ligamentous or tendon tear. The visualized neurovascular bundles are intact. Impression: Skin ulceration with skin thickening and abnormal soft tissue edema involving the distal third toe. There is underlying cortical destruction and bone marrow edema involving the distal phalanx of the third toe consistent with osteomyelitis. Signed by: Dr. Jose Manuel Ro M.D. on 08/24/2019 10:05 AM Dictated By: JOSE MANUEL RO MD, MD 100 Transcribed By: DOC on 08/24/19 1005 COPY TO: NEGRITO SEAMAN MD FOOT LEFT COMPLETE 2019-08-23 18:25:00 [place] [address] Patient Name: VIPUL RUIZ MR #: [id number] : 1945 Age/Sex: 74/M Req #: [id number] Adm Physician: NEGRITO SEAMAN MD Ordered by: ISH BANUELOS DO Report #: [id number] Location: [facility] Room/Bed: [place] [address] Procedure: [id number] DX/FOOT LEFT COMPLETE Exam Date: 08/23/19 Exam Time: 1800 REPORT STATUS: Signed Exam: Left foot series, 3 views. Clinical History: Gangrene, black toe Comparison: None. Findings: 3 views of the left foot. There is decreased bone mineralization. Negative for acute, displaced fracture or dislocation. Mild degenerative changes in the first toe metatarsophalangeal joint. Multiple air foci project in the soft tissues surrounding the third toe proximal phalanx. Lucencies and cortical irregularity noted in the superior/dorsal aspect of the fifth toe proximal phalanx, only seen in the lateral view. Extensive vascular calcifications. Moderate soft tissue swelling particularly in the dorsal aspect of the foot. Impression: 1. Findings consistent with gangrene involving the soft tissues surrounding the third toe proximal phalanx. 2. Findings in the superior/dorsal aspect of the fifth toe proximal phalanx are only seen in the lateral view, however, are suspicious for osteomyelitis. Signed by: Dr. Robin Bai M.D. on 08/23/2019 6:29 PM Dictated By: ROBIN BAI MD 28 Transcribed By: DOC on 08/23/191828 COPY TO: ISH BANUELOS DO
--- NOTE | 2019-08-31 11:32 | NUR ---
FAXED CLINICALS TO [facility] AND NOTIFIED REP OF FAX. WAITING ON AUTH.
--- NOTE | 2019-08-31 11:32 | NUR ---
EDUCATED ABOUT IMM, SIGNED, FILED IN CHART, WITH COPY LEFT WITH FAMILY AT BEDSIDE.
[2019-08-31 12:00] VITALS: BP 166/70
--- NOTE | 2019-08-31 12:00 | NUR ---
Infectious disease went to see pt foot and highly recommended that he go to SNF. PT and family agreed. Case management is aware. Notified Dr. Paulino that pt wants to go to SNF.
[2019-08-31] MEDS ORDERED: ONDANSETRON HCL 4 MG ORAL DISINTEGRATING TAB PO PRN (13:45)
--- NOTE | 2019-08-31 14:51 | NUR ---
RESIDENTIAL FACILITY DISCHARGE INFORMATION PATIENT HAS BEEN ACCEPTED TO: NAME: [facility] ADDRESS: [id number] [facility] Cammy ACCEPTING MD: DR SEAMAN ROOM:217 NURSE CALL REPORT TO: [phone] IMM SIGNED AND OBTAINED (if applicable): YES THE FOLLOWING DOCUMENTS MUST ACCOMPANY PATIENT FOR TRANSFER: COPIED CHART: YES
--- NOTE | 2019-08-31 15:00 | NUR ---
Dr. Hale was here and made him aware that pt is now agreeable to go to SNF. Received call from case management that pt has gotten bed at [facility]. Let Dr. Hale know and he gave orders to discharge pt to SNF.
[2019-08-31 16:00] VITALS: BP 165/74
[2019-08-31] MEDS: ENOXAPARIN SOD INJ 40 MG/0.4 ML SYR SC SCH (17:29)
--- NOTE | 2019-08-31 18:30 | NUR ---
Pt discharged at this time to [facility]. 0 s/s of acute distress noted at time of discharge. Pt was discharged with IV in place of IV ABT therapy. Family at the bedside and is aware of discharge.
--- NOTE | 2019-09-01 06:38 | Discharge Summary ---
FINAL DISCHARGE DIAGNOSES: 1. Left foot cellulitis with osteomyelitis, status post 3rd toe amputation, performed on 08/27/2019 by Podiatry. 2. Left foot cellulitis. 3. Peripheral vascular disease-per Cardiology's note, no further workup was needed. 4. Type 2 diabetes. 5. Hypertension. CONSULTANTS: Podiatry, Cardiology, and Infectious Disease. VITAL SIGNS: Temperature is 97.1, pulse 65, respiratory rate is 18, blood pressure was 165/74, pulse ox is 95% on room air. LABORATORY FINDINGS: Show white count 8.5, hemoglobin 10.2, hematocrit 35, platelets 242. Coagulation; PT 17, INR 1.42. Chemistry; sodium 142, potassium 3.9, chloride 110, bicarb 22, anion gap of 13, BUN 25, creatinine is 1.3, glucose is 111, calcium is 8.2. LDL was found to be 67. MICROBIOLOGY: None. IMAGING STUDIES: Foot x-ray shows findings consistent with gangrene involving the soft tissues surrounding the 3rd toe proximal phalanx of the left foot. Findings of severe posterior dorsal aspect of the 5th toe proximal phalanx are only seen now, however, are suspicious for osteomyelitis. MRI of the left foot shows skin ulceration with skin thickening and abnormal soft tissue edema involving the distal 3rd toe. There is underlying cortical discharge of bone marrow edema involving the distal phalanx of the 3rd toe, consistent with osteomyelitis. He did have arterial lower extremity Doppler, that showed bilateral lower extremity artery waveform reveals a moderate peripheral vascular disease. Chest x-ray shows moderate cardiomegaly with pulmonary edema. Opacities in the lower lungs may represent atelectasis or alveolar edema or infection in appropriate clinical setting. Suggest followup chest x-ray. Repeat chest foot x-ray on 08/27/2019, shows postoperative changes of the 3rd toe amputation as described above. HOSPITAL COURSE: This is a 74-year-old male, morbidly obese, who came in with worsening 3rd toe on left foot gangrene requiring further intervention and management. Podiatry, Cardiology, and Infectious Disease were consulted. The patient was maintained on broad-spectrum IV antibiotics. Imaging study shows a 3rd toe on the left foot to be gangrene. He underwent status post 3rd toe amputation on 08/27/2019. The patient maintained on broad-spectrum IV antibiotics per ID recommendations. Cardiology was consulted and lower extremity Doppler was performed. As per Cardiology, they recommended no further workup as the patient will likely not need any kind of PAD workup according to their recommendations. The patient maintained on IV antibiotics. Local wound care as well. Initially, the family refused to go to longterm facility delaying discharge, but eventually they agreed and was discharged to longterm facility to [facility]. Initially, the patient was going to be discharged on oral Cipro and doxycycline for 2 weeks, but after the fact that the family wants to go to longterm and the patient will likely need IV antibiotic therapy, they agreed. The patient was discharged to longterm on IV antibiotic therapy per ID recommendations. Podiatry, Cardiology, and ID all cleared the patient for discharge to longterm facility. On the day of discharge, vital signs were stable, labs reviewed and stable. The patient is seen and evaluated, and examined thoroughly on the day of discharge. No other complaints. The patient verbalized understanding and agrees to plan of care to follow up accordingly as an outpatient with the primary care physician in 1 week, Podiatry and ID in 2 weeks' time. He is to follow up with Cardiology in 3 to 4 weeks for further management and care. MEDICATIONS: See med reconciliation form. DISPOSITION: Home. CONDITION: Stable. DIET: Heart healthy. In the event of any worsening symptoms, the patient was advised to come back to the ED for further evaluation. Discharge summary took greater than 35 minutes. MD ROX Alonzo/MODElvia /[id number]
== END 2019-08-31 18:28 | DRG 240 ==
LOC: ER 17:25 → ERHOLD 17:34 → MED/SURG3 20:45
PROVIDERS: ADMIT Internal Medicine; ATTEND Internal Medicine
PROC: 0JBR0ZZ Excision of Left Foot Subcutaneous Tissue and Fascia, Open Approach (ICD-10-PCS; 2019-08-27)
PROC: 0Y6N0ZC Detachment at Left Foot, Partial 3rd Ray, Open Approach (ICD-10-PCS; principal; 2019-08-27 07:30)
DX: E11.52 Type 2 diabetes mellitus with diabetic peripheral angiopathy with gangrene (principal); L03.116 Cellulitis of left lower limb; M86.8X7 Other osteomyelitis, ankle and foot; N17.9 Acute kidney failure, unspecified; E11.69 Type 2 diabetes mellitus with other specified complication; E16.2 Hypoglycemia, unspecified; E11.40 Type 2 diabetes mellitus with diabetic neuropathy, unspecified; I10 Essential (primary) hypertension; Z79.4 Long term (current) use of insulin; E11.621 Type 2 diabetes mellitus with foot ulcer; L97.524 Non-pressure chronic ulcer of other part of left foot with necrosis of bone; E03.9 Hypothyroidism, unspecified; N40.0 Benign prostatic hyperplasia without lower urinary tract symptoms; E78.5 Hyperlipidemia, unspecified; I51.7 Cardiomegaly
CPT/HCPCS: 36415; 71045; 80048; 80061; 80202; 82948; 83036; 85025; 85610; 85651; 88304; 88305; 88311; 93005; 93925; 96372; 97139; 99284; J0720; J1650; J1817; J2001; J2405; J2543; J3370; J7050; J7799